=== PATIENT | male | born 1970 | race Caucasian/White ===

== ENCOUNTER 2023-02-02 09:56 | Outpatient (CLI) | payer OTHER, SELFPAY ==
--- NOTE | ~2023-02-02 | US_ITS ---
EXAMINATION: US scrotum doppler DATE: 02/02/2023 10:26 INDICATION: Right scrotal mass. TECHNIQUE: Grayscale and Doppler ultrasound images of the testes were obtained. COMPARISON: None. FINDINGS: The right testis measures 4.4 x 2.5 x 3.5 cm. The left testis measures 5.2 x 2.5 x 2.4 cm. There is normal vascular flow to both testes. The right epididymis is normal with normal vascular jesús w. The left epididymis is normal with normal vascular flow. There is no varicocele or hydrocele. Ther e is a right inguinal hernia containing bowel. IMPRESSION: 1. Right inguinal hernia containing bowel. Reviewed, dictated and finalized at location A.
== END 2023-02-02 09:57 | disposition home or self-care (01) ==
LOC: ANHIMG 10:00
PROVIDERS: Visit Provider Surgery
DX: N50.89 Other specified disorders of the male genital organs (principal); K40.90 Unilateral inguinal hernia, without obstruction or gangrene, not specified as recurrent
CPT/HCPCS: 76870; 93976

== ENCOUNTER 2023-03-09 01:17 | Day surgery (SDC) | payer OTHER, SELFPAY ==
[2023-03-06 14:41] VITALS: BMI 23.8
--- NOTE | 2023-03-06 14:52 | PC.NURSE ---
Report to the Outpatient Waiting Room, entrance under the green pavilion located off [facility], at time 1000 on date 03/09/23. Planned Procedure Time: 1200. Time changes happen often and if your time is changed the preop area will call you the afternoon before. - You and your visitor will be asked to self-screen and do not enter if you have any COVID symptoms. - A mask is optional within the hospital at this time. Patients may have clear liquids (water, carbonated beverages, clear teas, apple juice) until 3 hours prior to surgery with a maximum of 20 ounces. - No food from midnight until time of surgery Take the following medications with a SIP of water the morning of surgery: ALPRAZOLAM, CARVEDILOL, FLUOXETINE DO NOT STOP ANY OF YOUR OTHER PRESCRIPTION MEDICATIONS PRIOR TO SURGERY EXCEPT THE FOLLOWING Medications to discontinue per physician: VITAMINS Date to take last dose: NO MORE UNTIL AFTER SURGERY PER DR. QUINTANA, STOP PLAVIX 5 DAYS PRIOR TO SURGERY Please no make-up, nail slovak, hairspray, perfume, deodorant, or body powder the day of surgery. No jewelry (including any body piercings) or valuables the day of surgery, leave them at home. Please take a shower or bath the night before, or the morning of, surgery with an antibacterial soap (HIBICLENS). Wear comfortable, loose fitting clothing. - Jewelry must be removed prior to entering the operating room. Rings and piercings that are not removed may be cut off. - The hospital will not accept responsibility for valuables. - Please leave all valuables, including medications, at home the day of surgery. If you are going home after surgery, a licensed limo driver must drive you home. - NO public transportation without another adult if you receive anesthesia. - We recommend that an adult stay with you for 24 hours following discharge. - We also recommend that you do not drive, make important decision, drink alcoholic beverages, or take any drugs that were not prescribed by your health care provider for at least 24 hours after your discharge time. Follow any additional instructions given to you from your surgeon. If you or anyone in your household have experienced Covid symptoms in the past week, please notify your surgeon or the nurse liaison at the phone number below for possible testing. Telephone instructions given to MOM - KATE and asked if any additional questions and then verbalized understanding. Patient advised to call surgeon office or pre surgery nurse liaison [phone] if any additional questions.
[2023-03-09 10:16] VITALS: BP 129/78; PULSE 82; RESP 16; TEMP 36.9; O2SAT 100
[2023-03-09] MEDS: ACETAMINOPHEN 500 MG TABLET 1000 MG PO (10:45)
[2023-03-09] MEDS: KETOROLAC 15 MG/ML VIAL (*BKC) IV PUSH (10:53)
--- NOTE | 2023-03-09 10:54 | P.PNAN_ITS ---
Anes - Initial Pre Proc Eval Procedure: Operation Date: 03/09/23 12:00 Proposed Procedures p Right Inguinal Hernia Repair - Gavin Bradley MD Date/Time: 03/09/23 10:54 Surgeon: Gavin Bradley MD Pre Op Diagnosis: right Inguinal Hernia Patient Data Age: 52 Gender: M Height: 1.7 m Weight: 98.2 kg Last Vital Signs Temp 36.9 C 03/09/23 10:16 Pulse 82 03/09/23 10:16 Resp 16 03/09/23 10:16 BP 129/78 03/09/23 10:16 Pulse Ox 100 03/09/23 10:16 O2 Del Method Room Air 03/09/23 10:16 Allergies Allergy/AdvReac Type Severity Reaction Status Date / Time No Known Allergies Allergy Verified 03/06/23 14:39 Home Medications Medication Instructions Recorded Confirmed Type alprazolam 1 mg tablet 1 mg PO DAILY 01/26/23 03/06/23 History clopidogrel 75 mg tablet (Plavix) 75 mg PO DAILY 01/26/23 03/06/23 History losartan 25 mg tablet 25 mg PO DAILY 01/26/23 03/06/23 History vitamin B complex (B 1 tablet PO DAILY 01/26/23 03/06/23 History Complex-Vitamin B12 tablet) aspirin 81 mg tablet,delayed 81 mg PO DAILY 03/06/23 03/06/23 History release carvedilol 3.125 mg tablet 3.125 mg PO BID 03/06/23 03/06/23 History fluoxetine 60 mg tablet 60 mg PO DAILY 03/06/23 03/06/23 History Patient hx anesthesia problems: none Family hx anesthesia problems: none Results Review: All pre-operative results and documents have been reviewed as part of the pre- operative evaluation. [facility] Past Medical History Medical History History of myocardial infarction 2020 Surgical History Surgical History History of coronary artery stent placement 2020 History of left inguinal hernia repair 2012 Family History Family History Other Heart disease Hypertension Cancer Social History Social History Smoking packs per day: 1 Smoking cigarettes per day: 20.0 Years smoked: 36 Smoking pack-years: 36.00 Smoking status: Current every day smoker Tobacco type: cigarettes Alcohol intake: never Substance use: current Substance use type: marijuana Living arrangements: with family Occupation/Education: occupation 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 Informed Consent: The patient's anesthetic plan and its attendant risks and benefits were discussed with the patient/family/POA. Questions were solicited and answers provided to the satisfaction of the patient/family/POA.
--- NOTE | 2023-03-09 11:54 | WPDHPUPDATE1 ---
History and Physical Update Update Date/Time: 03/09/23 11:54 History and Physical has been reviewed, including an updated exam of the patient. There are NO changes in the patient's condition. Risks, benefits, and alternatives have been discussed and questions answered. Patient agrees to proceed with procedure.
[2023-03-09] MEDS: ceFAZolin 2 GM/D5W 50 ML 2 GM/50 ML BAG IVPB (12:04)
[2023-03-09] MEDS: LIDO 1%/EPINEPHRINE 1:100,000 20 ML VIAL 40 ML INFILTRATE (12:28)
[2023-03-09 14:44] VITALS: BP 129/85; PULSE 65; RESP 12; TEMP 36.9; O2SAT 100
[2023-03-09] MEDS: LACTATED RINGERS 1,000 ML 30 ML IV CONT ×2 (14:44)
--- NOTE | 2023-03-09 15:07 | W.PM.PROC2 ---
Procedure Note - Detailed Date of Procedure 03/09/23 Pre-op Diagnosis right Inguinal Hernia Post-op Diagnosis Other (Sliding right inguinal hernia) Procedure Performed Repair sliding right inguinal hernia withExtra-large PerFix Light plug and patch Surgeon Gavin Bradley MD Test Inspection Engineer Nuria [facility] Anesthesia General (G IV S) and Local Indications Patient has had a previous left inguinal hernia repair. He developed a right inguinal hernia about a year ago and it has gotten progressively larger to where it is painful with activity and generally uncomfortable. His exam showed a large inguinal hernia that filled the right hemiscrotum as well. Ultrasound was done preoperatively and there was no evidence of a hydrocele. He is taken to surgery now for repair of a large inguinal scrotal hernia. Findings This was a sliding hernia with urinary bladder composing the medial wall of the hernia sac. No other significant findings were noted Description of Procedure Patient was taken to surgery and anesthesia was introduced. The right groin and scrotum, genitalia were prepped and draped. The proposed incision was marked on the right inguinal area. Local is infiltrated into the skin and the deeper subcutaneous tissues. Incision was made and dissection was carried out through the superficial subcutaneous. Medially we encountered the hernia after only a small amount of dissection through the subcutaneous. We continued to dissect the subcutaneous more laterally down to the external oblique aponeurosis. The aponeurosis was exposed as was the external ring. Local anesthetic was infiltrated deep to the external oblique aponeurosis in the area of the spermatic cord and inguinal canal structures. I then opened the external oblique laterally and extended this incision medially through the external ring. The leaves of the external oblique aponeurosis were then carefully from the underlying inguinal canal contents and the large hernia. Care was taken to preserve the ilioinguinal nerve which was preserved throughout the surgery. The hernia and the spermatic cord were carefully dissected off of the right-sided the pubis and a [place] drain was passed around the cord at that level. I then started dissecting in the very large hernia. I dissected down through a few layers and eventually found the large hernia sac. There was a lot of frayed cremasteric muscle and other tissues that had been distorted due to the presence of the large hernia. Much of this was dissected and removed. Care was taken to avoid injury to the spermatic cord structures. Eventually I did dissect down to the hernia sac. I opened the hernia sac and was able to observe the urinary bladder composing the medial wall of the sac. I then carefully dissected the cord structures and other surrounding structures from the hernia sac. The hernia sac was then dissected out of the scrotum and up into the groin. Care was taken to avoid bringing the right testicle and associated structures out of the scrotum during the hernia sac dissection. The continued careful dissection of the hernia sac continued and eventually we freed the hernia sac from the cord structures and any other overlying tissues. I then continued the dissection and dissected the hernia sac free from cremasteric fibers and other tissues near the internal ring. The opening in the hernia sac was closed with running 3-0 Vicryl. I then dunked the sac into the retroperitoneum. An extra-large PerFix Light plug was then placed in the defect. The plug was sutured securely to the transversalis fascia with interrupted 3-0 Vicryl suture all around the outer edge of the plug. I then used a couple more 3-0 Vicryl and sutured the transversalis fascia partially over the plug to further keep it in place. This worked well and appeared to be a secure repair. The patch was then cut to the appropriate size. It was placed in the inguinal canal with the
[2023-03-09 15:15] VITALS: BP 126/87; PULSE 72; RESP 16
[2023-03-09 15:45] VITALS: BP 141/84; PULSE 78; RESP 16
[2023-03-09 16:15] VITALS: BP 132/78; PULSE 77; RESP 16
== END 2023-03-09 15:25 | disposition home or self-care (01) ==
PROVIDERS: Visit Provider Surgery
PROC: (CPT 49525; principal; 2023-03-09 12:00)
DX: K40.90 Unilateral inguinal hernia, without obstruction or gangrene, not specified as recurrent (principal); I25.2 Old myocardial infarction; F17.210 Nicotine dependence, cigarettes, uncomplicated; F12.90 Cannabis use, unspecified, uncomplicated; Z95.5 Presence of coronary angioplasty implant and graft; Z79.02 Long term (current) use of antithrombotics/antiplatelets; Z79.82 Long term (current) use of aspirin
CPT/HCPCS: 49525; A9270; C1781; J0690; J1885; J2250; J2704; J3010; J7120